=== PATIENT | female | born 1975 | race African-American/Black ===

== ENCOUNTER 2021-09-27 16:45 | Inpatient (IN) | payer MEDICAID, OTHER ==
[~2021-09-27] VITALS: Ht 160 cm; Wt 88.0 kg
[2021-09-27 18:33] LABS: HEMATOCRIT. 35.7 % (36.0-48.0); HEMOGLOBIN. 11.8 g/dL (12.0-16.0); MEAN CORPUSCULAR HEMOGLOBIN 29.9 pg (28.0-32.0); MEAN PLATELET VOLUME 8.1 fl (7.4-10.4); PLATELET 246 x1000/uL (130-400); RED BLOOD CELL COUNT 3.97 mill/uL (4.2-5.4); RED CELL DISTRIBUTION WIDTH 16.4 % (11.6-14.6)
[2021-09-27 18:40] LABS: CHLORIDE 98 mEq/L (98-107)
[2021-09-27 19:00] LABS: PLATELET ESTIMATE NORMAL
[2021-09-27] MEDS ORDERED: CLONIDINE 0.2MG TABLET PO ONE (20:00)
[2021-09-27] MEDS ORDERED: ASPIRIN 325MG EC TABLET PO ONE (20:00)
[2021-09-28] MEDS ORDERED: DOCUSATE SODIUM 100MG CAPSULE PO PRN (01:30)
[2021-09-28] MEDS: AMLODIPINE 10MG TABLET PO SCH ×2 (01:30→08:54)
[2021-09-28] MEDS ORDERED: CLONIDINE 0.1MG TABLET PO PRN (01:30)
[2021-09-28] MEDS ORDERED: ACETAMINOPHEN 325MG TABLET PO PRN (01:30)
[2021-09-28] MEDS ORDERED: HYDROCODONE/ACETAMINOPHEN 5/325MG TABLET PO PRN (01:30)
[2021-09-28] MEDS ORDERED: ONDANSETRON HCL 4MG/2ML INJ IV PRN (01:30)
[2021-09-28] MEDS ORDERED: NALOXONE HCL 0.4 MG/ML 1ML VIAL IV PRN (01:45)
[2021-09-28] MEDS ORDERED: HYDROMORPHONE HCL/PF 2MG/ML CPJ IV PRN (02:00)
[2021-09-28] MEDS ORDERED: KCL 10MEQ/50ML PREMIX 50 ML IV SCH (02:00)
[2021-09-28] MEDS ORDERED: METOPROLOL TARTRATE 25MG TABLET PO SCH (09:00)
[2021-09-28] MEDS ORDERED: ENOXAPARIN 40MG/0.4ML SYR SUBCUT SCH (09:00)
[2021-09-28] MEDS ORDERED: LISINOPRIL 40MG TABLET PO SCH (09:00)
[2021-09-28] MEDS ORDERED: ASPIRIN 81MG EC TABLET PO SCH (09:00)
[2021-09-28 09:30] VITALS: BP 128/90
[2021-09-28 10:00] VITALS: BP 128/90
[2021-09-28 11:31] VITALS: BP 115/78
[2021-09-28 12:00] VITALS: BP 115/78
== END 2021-09-28 13:40 | DRG 199 ==
LOC: ER 16:45 → MICUSO 09-28 01:14 → 6WST 09-28 09:47
PROVIDERS: ADMIT Hospitalist; ATTEND Hospitalist
DX: I16.0 Hypertensive urgency (principal); H57.13 Ocular pain, bilateral; I10 Essential (primary) hypertension; Z20.822 Contact with and (suspected) exposure to COVID-19
CPT/HCPCS: 36415; 71045; 80053; 83880; 84484; 85025; 87426; 93005; 93306; 93970; 99285; J1650; J3480